=== PATIENT | female | born 1975 | race Caucasian/White ===

== ENCOUNTER 2017-03-10 19:46 | Emergency (ER) | payer OTHER ==
[~2017-03-10] VITALS: Ht 170.2 cm; Wt 72.6 kg
[~2017-03-10 19:46] MED LIST: HYDR-548 PO
[2017-03-10 19:59] VITALS: BP 123/70
[2017-03-10] MEDS ORDERED: HYDROCODONE/APAP 10/325MG 1 EA TABLET ONE (20:20)
[2017-03-10] MEDS ORDERED: CLINDAMYCIN HCL 150 MG CAPSULE PO ONE (20:20)
[2017-03-10] MEDS: CLINDAMYCIN HCL 150 MG CAPSULE PO ONE (20:31)
[2017-03-10] MEDS: HYDROCODONE/APAP 10/325MG 1 EA TABLET PO ONE (20:31)
== END 2017-03-10 20:34 | disposition home or self-care (01) ==
LOC: ER 19:50
DX: K08.89 Other specified disorders of teeth and supporting structures (principal); F17.210 Nicotine dependence, cigarettes, uncomplicated; Z88.8 Allergy status to other drugs, medicaments and biological substances
CPT/HCPCS: 99283; A4606; Z7610

== ENCOUNTER 2019-03-24 22:56 | Emergency (ER) | payer MEDICARE, OTHER ==
[~2019-03-24] VITALS: Ht 170.2 cm; Wt 72.6 kg
[~2019-03-24 22:56] MED LIST changes: +HYDR-4354 PO; -HYDR-548 PO
[2019-03-24 23:22] VITALS: BP 115/76
[2019-03-25] MEDS ORDERED: HYDROCODONE/APAP 10/325MG 1 EA TABLET PO ONE
[2019-03-25] MEDS ORDERED: HYDROCODONE/APAP 10/325MG 1 EA TABLET ONE (00:13)
== END 2019-03-25 00:33 | disposition home or self-care (01) ==
LOC: ER 22:58
DX: M54.5 Low back pain (principal); G89.29 Other chronic pain; F17.200 Nicotine dependence, unspecified, uncomplicated; Z98.890 Other specified postprocedural states

== ENCOUNTER 2024-05-16 23:47 | Emergency (ER) | payer MEDICARE, OTHER ==
[~2024-05-16] VITALS: Ht 170.2 cm; Wt 77.1 kg
[2024-05-17 01:08] VITALS: BP 144/74; TEMP 98.5; O2SAT 99
[2024-05-17] MEDS ORDERED: HYDR-3980 PO (01:21)
[2024-05-20] MEDS ORDERED: HYDROCODONE/APAP 10/325MG TABLET ONE (23:44)
== END 2024-05-17 01:30 | disposition home or self-care (01) ==
LOC: ER 05-17 00:11
DX: G89.29 Other chronic pain (principal); F17.200 Nicotine dependence, unspecified, uncomplicated; Z98.890 Other specified postprocedural states; Z60.2 Problems related to living alone; Z88.1 Allergy status to other antibiotic agents

== ENCOUNTER 2024-05-19 23:08 | Emergency (ER) | payer BC, MEDICAID ==
[~2024-05-19] VITALS: Ht 170.2 cm; Wt 77.1 kg
[~2024-05-19 23:08] MED LIST changes: +HYDR-3980 PO
[2024-05-20 04:24] VITALS: BP 129/82; TEMP 98; O2SAT 99
[2024-05-21] MEDS ORDERED: HYDR-4279 PO (17:45)
[2024-05-21] MEDS ORDERED: HYDR-3980 PO (20:02)
== END 2024-05-20 04:27 | disposition home or self-care (01) ==
LOC: ER 23:12
DX: G89.29 Other chronic pain (principal); M54.9 Dorsalgia, unspecified; F17.200 Nicotine dependence, unspecified, uncomplicated; Z76.0 Encounter for issue of repeat prescription; Z88.8 Allergy status to other drugs, medicaments and biological substances; Z60.2 Problems related to living alone

== ENCOUNTER 2024-05-20 22:26 | Emergency (ER) | payer BC, MEDICAID ==
[~2024-05-20] VITALS: Ht 170.2 cm; Wt 77.1 kg
[2024-05-20 23:18] VITALS: BP 131/76; TEMP 98.1
[2024-05-20] MEDS: HYDROCODONE/APAP 10/325MG TABLET PO ONE (23:45)
[2024-05-21 00:05] VITALS: O2SAT 98
[2024-05-21] MEDS ORDERED: HYDR-4279 PO (17:45)
[2024-05-21] MEDS ORDERED: HYDR-3980 PO (20:02)
== END 2024-05-21 00:06 | disposition home or self-care (01) ==
LOC: ER 22:34
DX: G89.29 Other chronic pain (principal); M54.50 Low back pain, unspecified; Z98.890 Other specified postprocedural states; Z88.1 Allergy status to other antibiotic agents; Z79.899 Other long term (current) drug therapy

== ENCOUNTER → 2024-05-21 | Emergency (ER) | payer BC, MEDICAID ==
[~2024-05-21] VITALS: Ht 170.2 cm; Wt 77.6 kg
[~2024-05-21] MED LIST changes: +HYDR-4279 PO
[2024-05-21 17:06] VITALS: BP 143/71; TEMP 98.7; O2SAT 100
== END | disposition home or self-care (01) ==
LOC: ER 16:10
DX: G89.29 Other chronic pain (principal); Z76.0 Encounter for issue of repeat prescription; Z98.890 Other specified postprocedural states; Z88.1 Allergy status to other antibiotic agents

== ENCOUNTER 2024-06-15 23:12 | Emergency (ER) | payer BC, MEDICAID ==
[~2024-06-15] VITALS: Ht 170.2 cm; Wt 74.8 kg
[~2024-06-15 23:12] MED LIST changes: -HYDR-4279 PO
[2024-06-16 00:20] VITALS: BP 134/76; TEMP 98.1; O2SAT 98
[2024-06-16] MEDS ORDERED: LIDO1ADH62 TP (00:29)
== END 2024-06-16 00:48 | disposition home or self-care (01) ==
LOC: ER 23:14
DX: G89.29 Other chronic pain (principal); Z76.0 Encounter for issue of repeat prescription; F17.200 Nicotine dependence, unspecified, uncomplicated; Z98.890 Other specified postprocedural states; Z79.891 Long term (current) use of opiate analgesic; Z60.2 Problems related to living alone; Z88.1 Allergy status to other antibiotic agents